=== PATIENT | male | born 1955 | race Caucasian/White ===

== ENCOUNTER 2018-06-05 08:26 | Day surgery (SDC) | payer BC ==
[~2018-06-05 08:26] MED LIST: PROPOFOL 500 MG/50 ML EMU IV ONE
[2018-06-05 10:15] VITALS: TEMP 97.1
[2018-06-05 10:24] VITALS: O2SAT 96
[2018-06-05 10:34] VITALS: RESP 20
[2018-06-05 10:42] VITALS: BP 122/81; PULSE 64
== END 2018-06-05 11:16 | disposition home or self-care (01) ==
LOC: SURG 08:26
PROVIDERS: ATTEND Internal Medicine Gastroenterology
DX: Z12.11 Encounter for screening for malignant neoplasm of colon (principal); Z80.0 Family history of malignant neoplasm of digestive organs; K64.8 Other hemorrhoids
CPT/HCPCS: J2704